=== PATIENT | female | born 1950 | race Two or more races ===

== ENCOUNTER → 2016-08-01 | Outpatient (CLI) | payer MEDICARE, OTHER ==
[~2016-08-01] MED LIST: ACET500C4 PO; CLOP75 PO; CRAN1POW2 MC; DICL4100G TP; EZET10 PO; FENO160 PO; GABA-533 PO; HUMALIN; LEVO100 PO; LINA145C PO; LISI-662 PO; LUTE1CAP PO; METF500T4 PO; OMEP20 PO; SIMV-261 PO; VIT1CAPS5 PO
== END | disposition home or self-care (01) ==
LOC: RADPV 14:07
PROVIDERS: ATTEND Specialist
DX: M25.511 Pain in right shoulder (principal); M25.512 Pain in left shoulder

== ENCOUNTER → 2017-04-19 | Outpatient (CLI) | payer MEDICARE, OTHER | END | disposition home or self-care (01) | LOC: RADPV 14:31 | PROVIDERS: ATTEND Specialist | DX: M17.0 Bilateral primary osteoarthritis of knee (principal); I70.203 Unspecified atherosclerosis of native arteries of extremities, bilateral legs ==

== ENCOUNTER → 2017-09-24 | Outpatient (CLI) | payer MEDICARE, OTHER | END | disposition home or self-care (01) | LOC: RADPV 12:47 | PROVIDERS: ATTEND Specialist | DX: M25.862 Other specified joint disorders, left knee (principal) ==

== ENCOUNTER 2023-10-23 12:21 | Emergency (ER) | payer MEDICARE, OTHER ==
[~2023-10-23] VITALS: Ht 157.5 cm; Wt 100.0 kg
[~2023-10-23 12:21] MED LIST changes: -CLOP75 PO; +CLOP75TA60 PO; -EZET10 PO; +EZET10TA57 PO; -FENO160 PO; +FENO160T75 PO; +GABA-1201 PO; -GABA-533 PO; -LISI-662 PO; +LISI-894 PO; +METF-1211 PO; -METF500T4 PO
[2023-10-23 12:23] VITALS: BP 121/45; PULSE 70; RESP 18; TEMP 98.5
[2023-10-23 14:06] LABS: APPEARANCE,URINE CLEAR (CLEAR); BILIRUBIN,URINE NEGATIVE (NEGATIVE); COLOR,URINE YELLOW (YELLOW); GLUCOSE, URINE (UA) NEGATIVE (NEGATIVE); KETONES,URINE NEGATIVE (NEGATIVE); LEUKOCYTE ESTERASE ,URINE NEGATIVE (NEGATIVE); NITRATE,URINE NEGATIVE (NEGATIVE); OCCULT BLOOD,URINE NEGATIVE (NEGATIVE); PROTEIN,URINE NEGATIVE (NEGATIVE); SPECIFIC GRAVITIY, URINE 1.011 (1.003-1.030); UROBILINOGEN,URINE <=1.0 mg/dL (<=1.0)
[2023-10-23 14:56] LABS: EOSINOPHILS % (AUTO) 1.6 % (1.0-6.0); HEMATOCRIT 35.6 % (36-46); HEMOGLOBIN 11.9 g/dL (12.0-16.0); LYMPHOCYTES % (AUTO) 30.1 % (22.0-44.0); MEAN CORPUSCULAR HEMOGLOBIN 29.7 pg (26.0-34.0); MEAN CORPUSCULAR HGB CONC 33.4 G/dL (31.0-37.0); MEAN CORPUSCULAR VOLUME 89 fL (80-100); MONOCYTES # (AUTO) 0.6 K/uL (0.1-1.0); MONOCYTES % (AUTO) 9.1 % (2.0-9.0); NEUTROPHILS # (AUTO) 3.9 K/uL (1.8-7.7); NEUTROPHILS % (AUTO) 58.2 % (40.0-70.0); PLATELET COUNT (AUTO) 339 K/uL (150-450); RED BLOOD CELL COUNT(AUTO) 4.01 MIL/uL (4.00-5.20); RED CELL DISTRIBUTION WIDTH 14.4 % (11.5-14.5); WHITE BLOOD COUNT (AUTO) 6.7 K/uL (4.5-11.0)
[2023-10-23 15:08] LABS: CALCIUM, TOTAL 9.7 mg/dL (8.8-10.5); CREATININE 0.93 mg/dL (0.60-1.30); POTASSIUM 4.8 mmol/L (3.5-5.1)
[2023-10-23 15:14] LABS: BILIRUBIN,TOTAL 0.3 mg/dL (0.1-1.0); TOTAL PROTEIN, SERUM 7.9 g/dL (6.4-8.2)
[2023-10-23] MEDS ORDERED: PHEN-846 PO (15:32)
[2023-10-23] MEDS ORDERED: ONDA-104 PO (15:46)
== END 2023-10-23 15:33 | disposition home or self-care (01) ==
LOC: EMS 12:21
DX: R30.0 Dysuria (principal); E11.9 Type 2 diabetes mellitus without complications; I10 Essential (primary) hypertension; Z88.5 Allergy status to narcotic agent; Z88.6 Allergy status to analgesic agent
CPT/HCPCS: 80053; 81003; 85025; 99283

== ENCOUNTER 2024-08-29 16:52 | Inpatient (IN) | payer MEDICARE, OTHER ==
[~2024-08-29] VITALS: Ht 160 cm; Wt 78.5 kg
[~2024-08-29 16:52] MED LIST changes: +FENO160T14 PO; -FENO160T75 PO; +OMEP-148 PO; -OMEP20 PO; +ONDA-104 PO; +PHEN-846 PO
[2024-08-29] MEDS ORDERED: MECLIZINE HCL 25 MG TABLET PO PRN (21:00)
[2024-08-29] MEDS ORDERED: DEXTROSE 50%-WATER 25 GM/50 ML SYRINGE IVP PRN (21:15)
[2024-08-29 21:40] VITALS: BP 115/86; PULSE 73; RESP 18; TEMP 97.8; O2SAT 98
[2024-08-29] MEDS ORDERED: ETHYL ALCOHOL 62% ANTISEPTIC NASAL SANITIZER 0.6 ML AMPUL NASAL SCH (21:45)
[2024-08-29] MEDS: DOCUSATE SODIUM 100 MG CAPSULE PO SCH (21:49)
[2024-08-29] MEDS: SENNOSIDES 8.6 MG TABLET PO SCH (21:49)
[2024-08-29] MEDS: APIXABAN 5 MG TABLET PO SCH (21:49)
[2024-08-29] MEDS: MELATONIN 5 MG TABLET PO PRN (21:49)
[2024-08-29] MEDS: METOPROLOL TARTRATE 25 MG TABLET PO SCH (21:49)
[2024-08-29] MEDS: GABAPENTIN 300 MG CAPSULE PO SCH (21:49)
[2024-08-29] MEDS: CARBOXYMETHYLCELLULOSE SODIUM 0.4 ML OPHTHALMIC SOLUTION [PF] OU SCH (21:50)
[2024-08-29] MEDS: ETHYL ALCOHOL 62% ANTISEPTIC NASAL SANITIZER 0.6 ML AMPUL NASAL SCH (21:50)
[2024-08-29] MEDS: INSULIN GLARGINE,HUM.REC.ANLOG 100 UNITS/ML SQ SCH (22:14)
[2024-08-29] MEDS: INSULIN LISPRO 100 UNITS/ML SQ PRN (22:15)
[2024-08-29 23:10] LABS: GLUCOMETER DEV NAME(LOC) 2WR.1D; GLUCOSE,POINT OF CARE 319 MG/DL (70-110)
[2024-08-30 03:24] VITALS: O2SAT 98
[2024-08-30 06:30] LABS: BASOPHILS % (AUTO) 0.7 % (0.0-2.0); EOSINOPHILS % (AUTO) 3.2 % (1.0-6.0); HEMATOCRIT 34.7 % (36-46); HEMOGLOBIN 11.7 g/dL (12.0-16.0); LYMPHOCYTES # (AUTO) 2.4 K/uL (1.0-4.8); LYMPHOCYTES % (AUTO) 34.8 % (22.0-44.0); MEAN CORPUSCULAR HEMOGLOBIN 29.2 pg (26.0-34.0); MEAN CORPUSCULAR HGB CONC 33.8 G/dL (31.0-37.0); MEAN CORPUSCULAR VOLUME 86 fL (80-100); MONOCYTES # (AUTO) 0.8 K/uL (0.1-1.0); MONOCYTES % (AUTO) 10.9 % (2.0-9.0); NEUTROPHILS # (AUTO) 3.5 K/uL (1.8-7.7); NEUTROPHILS % (AUTO) 50.4 % (40.0-70.0); PLATELET COUNT (AUTO) 299 K/uL (150-450); RED BLOOD CELL COUNT(AUTO) 4.02 MIL/uL (4.00-5.20)
[2024-08-30 06:38] LABS: ALANINE AMINOTRANSFERASE 30 U/L (12-78); ALBUMIN 2.9 g/dL (3.4-5.0); ALKALINE PHOSPHATASE 93 U/L (46-116); ANION GAP 7 mmol/L (8-16); ASPARTATE AMINOTRANSFERASE 21 U/L (15-37); BILIRUBIN,TOTAL 0.3 mg/dL (0.1-1.0); CALCIUM, TOTAL 9.2 mg/dL (8.8-10.5); CARBON DIOXIDE 26 mmol/L (22-29); CHLORIDE 103 mmol/L (98-107); CREATININE 0.66 mg/dL (0.60-1.30); GLOMERULAR FILTR. RATE CALC > 60 mL/min (>60); GLUCOSE,RANDOM 235 mg/dL (70-110); SODIUM SERUM 136 mmol/L (136-145); TOTAL PROTEIN, SERUM 6.6 g/dL (6.4-8.2); UREA NITROGEN, BLOOD 20 mg/dL (7-18)
[2024-08-30] MEDS: LEVOTHYROXINE SODIUM 125 MCG TABLET PO SCH (06:57)
[2024-08-30 07:00] LABS: GLUCOMETER DEV NAME(LOC) 2WR.1D; GLUCOSE,POINT OF CARE 236 MG/DL (70-110)
[2024-08-30] MEDS: PANTOPRAZOLE SODIUM 40 MG DR TABLET PO SCH (07:25)
[2024-08-30] MEDS: CHOLECALCIFEROL (VIT D3) 1,000 UNITS [25 MCG] TABLET PO SCH (07:49)
[2024-08-30] MEDS: ASPIRIN 81 MG DR TABLET PO SCH (07:49)
[2024-08-30] MEDS: MetFORMIN HCL 500 MG TABLET PO SCH (07:49)
[2024-08-30 08:05] VITALS: BP 127/73; PULSE 70; RESP 18; TEMP 98; O2SAT 98
[2024-08-30] MEDS: FLUTICASONE PROPIONATE 50 MCG/SPRAY 16 GM NASAL SPRAY NASAL SCH (09:06)
[2024-08-30 10:15] VITALS: O2SAT 98
[2024-08-30 11:30] VITALS: BP 118/68; PULSE 78; RESP 18; TEMP 98.2; O2SAT 98
[2024-08-30 11:45] LABS: GLUCOMETER DEV NAME(LOC) 2WR.1D; GLUCOSE,POINT OF CARE 233 MG/DL (70-110)
[2024-08-30] MEDS: INSULIN LISPRO 100 UNITS/ML SQ SCH (12:14)
[2024-08-30 17:15] LABS: GLUCOMETER DEV NAME(LOC) 2WR.2B; GLUCOSE,POINT OF CARE 161 MG/DL (70-110)
[2024-08-30 20:00] VITALS: BP 108/62; PULSE 73; RESP 18; TEMP 98.1; O2SAT 98
[2024-08-30] MEDS: MUPIROCIN CALCIUM 2% 22 GM OINTMENT NASAL SCH (20:23)
[2024-08-30] MEDS: ATORVASTATIN CALCIUM 40 MG TABLET PO SCH (20:26)
[2024-08-30 21:51] LABS: GLUCOMETER DEV NAME(LOC) 2WR.2B; GLUCOSE,POINT OF CARE 139 MG/DL (70-110)
[2024-08-31] MEDS: ACETAMINOPHEN 500 MG TABLET PO PRN (06:29)
[2024-08-31 06:39] VITALS: RESP 18; TEMP 98.2; O2SAT 98
[2024-08-31 06:40] LABS: GLUCOMETER DEV NAME(LOC) 2WR.1D; GLUCOSE,POINT OF CARE 158 MG/DL (70-110)
[2024-08-31 07:41] LABS: BASOPHILS % (AUTO) 0.8 % (0.0-2.0); EOSINOPHILS % (AUTO) 3.2 % (1.0-6.0); HEMATOCRIT 34.8 % (36-46); HEMOGLOBIN 11.8 g/dL (12.0-16.0); LYMPHOCYTES # (AUTO) 3.2 K/uL (1.0-4.8); LYMPHOCYTES % (AUTO) 37.6 % (22.0-44.0); MEAN CORPUSCULAR HEMOGLOBIN 29.3 pg (26.0-34.0); MEAN CORPUSCULAR HGB CONC 33.9 G/dL (31.0-37.0); MEAN CORPUSCULAR VOLUME 86 fL (80-100); MONOCYTES # (AUTO) 0.9 K/uL (0.1-1.0); MONOCYTES % (AUTO) 10.1 % (2.0-9.0); NEUTROPHILS # (AUTO) 4.1 K/uL (1.8-7.7); NEUTROPHILS % (AUTO) 48.3 % (40.0-70.0); PLATELET COUNT (AUTO) 295 K/uL (150-450); RED BLOOD CELL COUNT(AUTO) 4.03 MIL/uL (4.00-5.20); RED CELL DISTRIBUTION WIDTH 13.6 % (11.5-14.5); WHITE BLOOD COUNT (AUTO) 8.6 K/uL (4.5-11.0)
[2024-08-31 08:00] VITALS: BP 146/68; PULSE 73; RESP 18; TEMP 97.7; O2SAT 97
[2024-08-31 12:51] LABS: GLUCOMETER DEV NAME(LOC) 2WR.1D; GLUCOSE,POINT OF CARE 172 MG/DL (70-110)
[2024-08-31 17:40] LABS: GLUCOMETER DEV NAME(LOC) 2WR.1D; GLUCOSE,POINT OF CARE 142 MG/DL (70-110)
[2024-08-31 20:00] VITALS: BP 116/56; PULSE 70; RESP 18; TEMP 98.5; O2SAT 99
[2024-09-01 05:26] LABS: GLUCOMETER DEV NAME(LOC) 2WR.2B; GLUCOSE,POINT OF CARE 221 MG/DL (70-110)
[2024-09-01 05:26] LABS: GLUCOMETER DEV NAME(LOC) 2WR.2B; GLUCOSE,POINT OF CARE 70 MG/DL (70-110)
[2024-09-01 05:26] LABS: GLUCOMETER DEV NAME(LOC) 2WR.2B; GLUCOSE,POINT OF CARE 96 MG/DL (70-110)
[2024-09-01 05:26] LABS: GLUCOMETER DEV NAME(LOC) 2WR.2B; GLUCOSE,POINT OF CARE 51 MG/DL (70-110)
[2024-09-01 05:26] LABS: GLUCOMETER DEV NAME(LOC) 2WR.2B; GLUCOSE,POINT OF CARE 124 MG/DL (70-110)
[2024-09-01 05:26] LABS: GLUCOMETER DEV NAME(LOC) 2WR.2B; GLUCOSE,POINT OF CARE 67 MG/DL (70-110)
[2024-09-01 06:55] LABS: GLUCOMETER DEV NAME(LOC) 2WR.1D; GLUCOSE,POINT OF CARE 206 MG/DL (70-110)
[2024-09-01 08:00] VITALS: BP 136/66; PULSE 67; RESP 18; TEMP 98; O2SAT 97
[2024-09-01] MEDS ORDERED: DEXTROSE 50%-WATER 25 GM/50 ML SYRINGE IVP PRN (08:45)
[2024-09-01] MEDS: INSULIN LISPRO 100 UNITS/ML SQ PRN (09:01)
[2024-09-01] MEDS: MetFORMIN HCL 500 MG TABLET PO SCH (09:05)
[2024-09-01 12:56] LABS: GLUCOMETER DEV NAME(LOC) 2WR.2B; GLUCOSE,POINT OF CARE 185 MG/DL (70-110)
[2024-09-01] MEDS ORDERED: MetFORMIN HCL 500 MG TABLET PO SCH (17:00)
[2024-09-01 17:36] LABS: GLUCOMETER DEV NAME(LOC) 2WR.1D; GLUCOSE,POINT OF CARE 167 MG/DL (70-110)
[2024-09-01 20:00] VITALS: BP 164/66; PULSE 68; RESP 18; TEMP 98.8; O2SAT 97
[2024-09-01 22:35] LABS: GLUCOMETER DEV NAME(LOC) 2WR.2B; GLUCOSE,POINT OF CARE 113 MG/DL (70-110)
[2024-09-02 05:36] LABS: GLUCOMETER DEV NAME(LOC) 2WR.2B; GLUCOSE,POINT OF CARE 159 MG/DL (70-110)
[2024-09-02 06:55] LABS: GLUCOMETER DEV NAME(LOC) 2WR.2B; GLUCOSE,POINT OF CARE 190 MG/DL (70-110)
[2024-09-02 08:00] VITALS: BP 122/61; PULSE 63; RESP 17; TEMP 97.4; O2SAT 98
[2024-09-02] MEDS: PHENAZOPYRIDINE HCL 100 MG TABLET PO SCH (12:20)
[2024-09-02 12:45] LABS: GLUCOMETER DEV NAME(LOC) 2WR.1D; GLUCOSE,POINT OF CARE 184 MG/DL (70-110)
[2024-09-02] MEDS: SULFAMETHOX/TRIMETH DS 800-160 MG/TABLET PO SCH (13:41)
[2024-09-02 14:02] LABS: APPEARANCE,URINE HAZY (CLEAR); BILIRUBIN,URINE NEGATIVE (NEGATIVE); COLOR,URINE LIGHT YELLOW (YELLOW); GLUCOSE, URINE (UA) NEGATIVE (NEGATIVE); KETONES,URINE NEGATIVE (NEGATIVE); LEUKOCYTE ESTERASE ,URINE SMALL (NEGATIVE); NITRATE,URINE POSITIVE (NEGATIVE); OCCULT BLOOD,URINE NEGATIVE (NEGATIVE); PH,URINE 5.5 (5.0-8.0); PROTEIN,URINE NEGATIVE (NEGATIVE); SPECIFIC GRAVITIY, URINE 1.014 (1.003-1.030); UROBILINOGEN,URINE <=1.0 mg/dL (<=1.0)
[2024-09-02 14:32] LABS: BACTERIA,URINE Many /HPF (None Seen); RBC,URINE None Seen /HPF (0-2)
[2024-09-02 16:58] VITALS: BP 127/71; PULSE 70; RESP 17; O2SAT 99
[2024-09-02 17:31] LABS: GLUCOMETER DEV NAME(LOC) 2WR.2B; GLUCOSE,POINT OF CARE 98 MG/DL (70-110)
[2024-09-02 19:05] LABS: GLUCOMETER DEV NAME(LOC) 2WR.1D; GLUCOSE,POINT OF CARE 123 MG/DL (70-110)
[2024-09-02 20:06] VITALS: BP 121/61; PULSE 69; RESP 18; TEMP 97.5; O2SAT 97
[2024-09-02 22:16] LABS: GLUCOMETER DEV NAME(LOC) 2WR.2B; GLUCOSE,POINT OF CARE 235 MG/DL (70-110)
[2024-09-03 07:02] LABS: BASOPHILS % (AUTO) 0.9 % (0.0-2.0); EOSINOPHILS % (AUTO) 1.6 % (1.0-6.0); HEMATOCRIT 32.7 % (36-46); HEMOGLOBIN 11.5 g/dL (12.0-16.0); LYMPHOCYTES # (AUTO) 2.5 K/uL (1.0-4.8); LYMPHOCYTES % (AUTO) 26.2 % (22.0-44.0); MEAN CORPUSCULAR HEMOGLOBIN 30.1 pg (26.0-34.0); MEAN CORPUSCULAR VOLUME 86 fL (80-100); MONOCYTES # (AUTO) 0.9 K/uL (0.1-1.0); MONOCYTES % (AUTO) 9.6 % (2.0-9.0); NEUTROPHILS # (AUTO) 5.9 K/uL (1.8-7.7); NEUTROPHILS % (AUTO) 61.7 % (40.0-70.0); PLATELET COUNT (AUTO) 287 K/uL (150-450); RED BLOOD CELL COUNT(AUTO) 3.81 MIL/uL (4.00-5.20); RED CELL DISTRIBUTION WIDTH 13.7 % (11.5-14.5); WHITE BLOOD COUNT (AUTO) 9.6 K/uL (4.5-11.0)
[2024-09-03 07:05] LABS: GLUCOMETER DEV NAME(LOC) 2WR.2B; GLUCOSE,POINT OF CARE 201 MG/DL (70-110)
[2024-09-03 08:05] VITALS: BP 128/64; PULSE 70; RESP 18; TEMP 97.4; O2SAT 98
[2024-09-03 11:01] VITALS: O2SAT 98
[2024-09-03 12:11] LABS: GLUCOMETER DEV NAME(LOC) 2WR.1D; GLUCOSE,POINT OF CARE 205 MG/DL (70-110)
[2024-09-03 17:16] LABS: GLUCOMETER DEV NAME(LOC) 2WR.1D; GLUCOSE,POINT OF CARE 145 MG/DL (70-110)
[2024-09-03 20:00] VITALS: BP 117/76; PULSE 80; RESP 18; TEMP 97.9; O2SAT 98
[2024-09-03 21:00] LABS: GLUCOMETER DEV NAME(LOC) 2WR.1D; GLUCOSE,POINT OF CARE 130 MG/DL (70-110)
[2024-09-04 06:45] LABS: GLUCOMETER DEV NAME(LOC) 2WR.1D; GLUCOSE,POINT OF CARE 178 MG/DL (70-110)
[2024-09-04 08:05] VITALS: BP 121/68; PULSE 63; RESP 17; TEMP 98.1; O2SAT 98
[2024-09-04 12:35] LABS: GLUCOMETER DEV NAME(LOC) 2WR.1D; GLUCOSE,POINT OF CARE 137 MG/DL (70-110)
[2024-09-04 17:40] LABS: GLUCOMETER DEV NAME(LOC) 2WR.2B; GLUCOSE,POINT OF CARE 163 MG/DL (70-110)
[2024-09-04] MEDS: NITROFURANTOIN MONOHYD/M-CRYST 100 MG CAPSULE [MACROBID] PO SCH (20:06)
[2024-09-04 20:15] VITALS: BP 128/65; PULSE 68; RESP 18; TEMP 97.1; O2SAT 98
[2024-09-04 22:35] VITALS: O2SAT 98
[2024-09-05 03:21] LABS: GLUCOMETER DEV NAME(LOC) 2WR.2B; GLUCOSE,POINT OF CARE 190 MG/DL (70-110)
[2024-09-05 06:50] LABS: GLUCOMETER DEV NAME(LOC) 2WR.2B; GLUCOSE,POINT OF CARE 205 MG/DL (70-110)
[2024-09-05 07:54] VITALS: BP 126/62; PULSE 64; RESP 18; TEMP 97.9; O2SAT 98
[2024-09-05 09:09] VITALS: O2SAT 98
[2024-09-05 12:46] LABS: GLUCOMETER DEV NAME(LOC) 2WR.1D; GLUCOSE,POINT OF CARE 225 MG/DL (70-110)
[2024-09-05 12:51] VITALS: BP 130/66; PULSE 65; RESP 18
[2024-09-05 17:16] LABS: GLUCOMETER DEV NAME(LOC) 2WR.2B; GLUCOSE,POINT OF CARE 155 MG/DL (70-110)
[2024-09-05 19:45] VITALS: BP 122/77; PULSE 75; RESP 18; TEMP 98.1
[2024-09-05 20:45] LABS: GLUCOMETER DEV NAME(LOC) 2WR.2B; GLUCOSE,POINT OF CARE 114 MG/DL (70-110)
[2024-09-05] MEDS: INSULIN GLARGINE,HUM.REC.ANLOG 100 UNITS/ML SQ SCH (21:34)
[2024-09-05 22:18] VITALS: O2SAT 100
[2024-09-06 06:50] LABS: GLUCOMETER DEV NAME(LOC) 2WR.2B; GLUCOSE,POINT OF CARE 181 MG/DL (70-110)
[2024-09-06 08:00] VITALS: BP 120/57; PULSE 68; RESP 19; TEMP 98; O2SAT 98
[2024-09-06 12:51] LABS: GLUCOMETER DEV NAME(LOC) 2WR.1D; GLUCOSE,POINT OF CARE 212 MG/DL (70-110)
[2024-09-06] MEDS: PHENAZOPYRIDINE HCL 100 MG TABLET PO SCH (13:33)
[2024-09-06 17:21] LABS: GLUCOMETER DEV NAME(LOC) 2WR.1D; GLUCOSE,POINT OF CARE 165 MG/DL (70-110)
[2024-09-06 20:27] VITALS: BP 129/62; PULSE 72; RESP 18; TEMP 98; O2SAT 97
[2024-09-06 21:25] LABS: GLUCOMETER DEV NAME(LOC) 2WR.2B; GLUCOSE,POINT OF CARE 154 MG/DL (70-110)
[2024-09-06 22:44] VITALS: O2SAT 97
[2024-09-07 07:06] LABS: GLUCOMETER DEV NAME(LOC) 2WR.1D; GLUCOSE,POINT OF CARE 140 MG/DL (70-110)
[2024-09-07 08:00] VITALS: BP 124/66; PULSE 66; RESP 18; TEMP 97.7; O2SAT 97
[2024-09-07 12:16] LABS: GLUCOMETER DEV NAME(LOC) 2WR.1D; GLUCOSE,POINT OF CARE 210 MG/DL (70-110)
[2024-09-07 19:01] LABS: GLUCOMETER DEV NAME(LOC) 2WR.1D; GLUCOSE,POINT OF CARE 127 MG/DL (70-110)
[2024-09-07 19:01] LABS: GLUCOMETER DEV NAME(LOC) 2WR.1D; GLUCOSE,POINT OF CARE 119 MG/DL (70-110)
[2024-09-07 20:02] VITALS: BP 137/70; PULSE 74; RESP 18; TEMP 98.3; O2SAT 98
[2024-09-07 20:30] VITALS: O2SAT 98
[2024-09-08 01:42] LABS: GLUCOMETER DEV NAME(LOC) 2WR.2B; GLUCOSE,POINT OF CARE 204 MG/DL (70-110)
[2024-09-08 07:06] LABS: GLUCOMETER DEV NAME(LOC) 2WR.1D; GLUCOSE,POINT OF CARE 199 MG/DL (70-110)
[2024-09-08 08:00] VITALS: BP 131/74; PULSE 57; RESP 18; TEMP 97.9; O2SAT 97
[2024-09-08 13:00] LABS: GLUCOMETER DEV NAME(LOC) 2WR.1D; GLUCOSE,POINT OF CARE 155 MG/DL (70-110)
[2024-09-08 18:11] LABS: GLUCOMETER DEV NAME(LOC) 2WR.1D; GLUCOSE,POINT OF CARE 84 MG/DL (70-110)
[2024-09-08 20:02] VITALS: BP 148/70; PULSE 67; RESP 18; TEMP 98.4; O2SAT 97
[2024-09-08 21:11] LABS: GLUCOMETER DEV NAME(LOC) 2WR.1D; GLUCOSE,POINT OF CARE 206 MG/DL (70-110)
[2024-09-09 06:10] VITALS: O2SAT 97
[2024-09-09 06:41] LABS: GLUCOMETER DEV NAME(LOC) 2WR.2B; GLUCOSE,POINT OF CARE 175 MG/DL (70-110)
[2024-09-09 08:00] VITALS: BP 126/66; PULSE 62; RESP 18; TEMP 97.4; O2SAT 97
[2024-09-09 12:25] LABS: GLUCOMETER DEV NAME(LOC) 2WR.2B; GLUCOSE,POINT OF CARE 122 MG/DL (70-110)
[2024-09-09 18:05] LABS: GLUCOMETER DEV NAME(LOC) 2WR.1D; GLUCOSE,POINT OF CARE 90 MG/DL (70-110)
[2024-09-09 20:08] VITALS: BP 138/67; PULSE 67; RESP 18; TEMP 98.3; O2SAT 99
[2024-09-09 21:00] VITALS: O2SAT 99
[2024-09-09 21:05] LABS: GLUCOMETER DEV NAME(LOC) 2WR.2B; GLUCOSE,POINT OF CARE 205 MG/DL (70-110)
[2024-09-10 06:55] LABS: GLUCOMETER DEV NAME(LOC) 2WR.2B; GLUCOSE,POINT OF CARE 149 MG/DL (70-110)
[2024-09-10 07:40] VITALS: BP 147/52; PULSE 67; RESP 18; TEMP 97.9; O2SAT 98
[2024-09-10 08:30] VITALS: BP 140/68; PULSE 65; O2SAT 98
[2024-09-10 11:30] LABS: GLUCOMETER DEV NAME(LOC) 2WR.2B; GLUCOSE,POINT OF CARE 150 MG/DL (70-110)
[2024-09-10 12:04] LABS: APPEARANCE,URINE HAZY (CLEAR); BILIRUBIN,URINE NEGATIVE (NEGATIVE); COLOR,URINE DARK YELLOW (YELLOW); GLUCOSE, URINE (UA) NEGATIVE (NEGATIVE); KETONES,URINE NEGATIVE (NEGATIVE); LEUKOCYTE ESTERASE ,URINE NEGATIVE (NEGATIVE); NITRATE,URINE POSITIVE (NEGATIVE); OCCULT BLOOD,URINE NEGATIVE (NEGATIVE); PH,URINE 6.5 (5.0-8.0); PROTEIN,URINE NEGATIVE (NEGATIVE); SPECIFIC GRAVITIY, URINE 1.018 (1.003-1.030); UROBILINOGEN,URINE <=1.0 mg/dL (<=1.0)
[2024-09-10 12:11] LABS: BACTERIA,URINE Many /HPF (None Seen); RBC,URINE 0-2 /HPF (0-2); WBC,URINE 0-2 /HPF (0-5)
[2024-09-10 16:00] VITALS: BP 132/72; PULSE 75; RESP 18; TEMP 97.8; O2SAT 98
[2024-09-10 16:46] VITALS: BP 157/86; PULSE 86
== END 2024-09-10 17:30 | DRG 57 ==
LOC: 2WR 19:17
PROVIDERS: ADMIT Physical Medicine & Rehabilitation; ATTEND Physical Medicine & Rehabilitation
DX: I69.354 Hemiplegia and hemiparesis following cerebral infarction affecting left non-dominant side (principal); N39.0 Urinary tract infection, site not specified; Z16.12 Extended spectrum beta lactamase (ESBL) resistance; R41.4 Neurologic neglect syndrome; K21.9 Gastro-esophageal reflux disease without esophagitis; I48.91 Unspecified atrial fibrillation; R32 Unspecified urinary incontinence; E03.9 Hypothyroidism, unspecified; E11.40 Type 2 diabetes mellitus with diabetic neuropathy, unspecified; E11.65 Type 2 diabetes mellitus with hyperglycemia; E66.01 Morbid (severe) obesity due to excess calories; E78.5 Hyperlipidemia, unspecified; I10 Essential (primary) hypertension; Z74.09 Other reduced mobility; R47.1 Dysarthria and anarthria; R13.10 Dysphagia, unspecified; R41.89 Other symptoms and signs involving cognitive functions and awareness; R26.81 Unsteadiness on feet; R62.7 Adult failure to thrive; R42 Dizziness and giddiness; E11.649 Type 2 diabetes mellitus with hypoglycemia without coma; R45.86 Emotional lability; Z66 Do not resuscitate; Z78.9 Other specified health status; Z79.01 Long term (current) use of anticoagulants; Z87.440 Personal history of urinary (tract) infections; Z79.02 Long term (current) use of antithrombotics/antiplatelets; Z88.5 Allergy status to narcotic agent; Z79.899 Other long term (current) drug therapy; Z68.30 Body mass index [BMI] 30.0-30.9, adult
CPT/HCPCS: 80053; 81001; 82962; 84145; 85025; 87077; 87081; 87086; 87186; 92507; 92523; 92610; 97110; 97112; 97116; 97163; 97167; 97530; 97535; 99366; J1815